=== PATIENT | female | born 1955 | race Two or more races ===

== ENCOUNTER 2019-03-11 16:50 | Emergency (ER) | payer OTHER ==
[~2019-03-11] VITALS: Ht 165.1 cm; Wt 74.8 kg
[2019-03-11 17:00] VITALS: BP 162/92
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
[2019-03-11] MEDS ORDERED: IBU800 MG PO (17:40)
[2019-03-11] MEDS ORDERED: FAMOTIDINE20 MG ORAL (17:40)
[2019-03-11] MEDS ORDERED: ROBAXIN500 MG PO (17:40)
[2019-03-11 18:15] VITALS: BP 162/92
--- NOTE | 2019-03-11 18:15 | NUR ---
ER DISCHARGE NOTE: Patient is cleared to be discharged per KELLI SCHULZ, pt is aox4, on room air, with stable vital signs. pt was given dc and prescription instructions, pt was able to verbalize understanding, pt id band removed without complications. pt is able to ambulate with steady gait. pt took all belongings.
== END 2019-03-11 18:15 | disposition home or self-care (01) ==
LOC: EMR 17:44
DX: S39.012A Strain of muscle, fascia and tendon of lower back, initial encounter (principal); S16.1XXA Strain of muscle, fascia and tendon at neck level, initial encounter; M54.40 Lumbago with sciatica, unspecified side; V49.9XXA Car occupant (driver) (passenger) injured in unspecified traffic accident, initial encounter; Y92.410 Unspecified street and highway as the place of occurrence of the external cause
CPT/HCPCS: 99282